=== PATIENT | male | born 1995 | race American Indian/Alaskan Native ===

== ENCOUNTER 2020-05-19 07:33 | Emergency (ER) | payer SELFPAY ==
[2020-05-19 07:43] VITALS: BP 125/76
--- NOTE | 2020-05-20 14:37 | Electrocardiograph Report ---
[facility] Test Date: 2020-05-19 Test Time: 07:49:09 Pat Name: CHERYL KRUGER Department: Room: Gender: M Staff Design Engineer: SHANE : 1995 Requested By: ED DOC Order Number: [id number] Reading MD: Jada Summers Measurements Intervals [place] Rate: 63 P: 46 OK: 136 QRS: 61 QRSD: 94 T: 64 QT: 413 QTc: 422 Interpretive Statements Sinus rhythm No previous ECG available for comparison Electronically Signed On 05-20-2020 14:37:06 EDT by Jada Summers
== END 2020-05-19 08:00 | disposition left against medical advice (07) ==
LOC: ED 07:33
DX: R07.89 Other chest pain (principal); Z53.21 Procedure and treatment not carried out due to patient leaving prior to being seen by health care provider
CPT/HCPCS: 93005